=== PATIENT | female | born 1995 | race Two or more races ===

== ENCOUNTER 2021-04-28 12:45 | Emergency (ER) | payer MEDICAID, OTHER ==
[~2021-04-28] VITALS: Ht 165.1 cm; Wt 115.7 kg
[2021-04-28 13:24] VITALS: BP 171/88
[2021-04-28] MEDS ORDERED: TOBR0.3S OP (14:18)
== END 2021-04-28 14:27 | disposition home or self-care (01) ==
LOC: ER 12:45
DX: H00.014 Hordeolum externum left upper eyelid (principal); F12.10 Cannabis abuse, uncomplicated

== ENCOUNTER 2022-02-20 10:35 | Emergency (ER) | payer MEDICAID ==
[~2022-02-20] VITALS: Ht 165.1 cm; Wt 114.0 kg
[~2022-02-20 10:35] MED LIST: TOBR0.3S OP
[2022-02-20 11:10] VITALS: BP 136/93
[2022-02-20] MEDS ORDERED: ACETAMINOPHEN 500 MG TAB PO ONE (11:15)
[2022-02-20] MEDS ORDERED: METH4PAK PO (12:26)
[2022-02-20] MEDS ORDERED: AZIT1POW PO (12:26)
== END 2022-02-20 12:32 | disposition home or self-care (01) ==
LOC: ER 10:35
DX: J10.1 Influenza due to other identified influenza virus with other respiratory manifestations (principal); F17.210 Nicotine dependence, cigarettes, uncomplicated; F12.10 Cannabis abuse, uncomplicated; E11.9 Type 2 diabetes mellitus without complications; Z20.822 Contact with and (suspected) exposure to COVID-19
CPT/HCPCS: 36415; 71046; 87426; 87804

== ENCOUNTER 2023-11-11 22:07 | Emergency (ER) | payer MEDICAID ==
[~2023-11-11] VITALS: Ht 165.1 cm; Wt 115.3 kg
[~2023-11-11 22:07] MED LIST changes: +AZIT1POW PO; +METH4PAK PO
[2023-11-11] MEDS: IBUPROFEN 400 MG TAB PO ONE (22:33)
[2023-11-12 02:16] LABS: COVID19 ANTIGEN SOFIA FIA NEGATIVE (NEGATIVE); Rapid Influenza A Negative (Negative); Rapid Influenza B Negative (Negative)
[2023-11-12 02:25] LABS: Urine Bacteria None Seen /hpf (None Seen); Urine Blood 3+ /uL (Negative); Urine Clarity Clear (Clear); Urine Color Light-Yellow (Yellow); Urine Protein, UAD TRACE (Negative); Urine Specific Gravity 1.027 (1.001-1.035); Urine Urobilinogen Normal (Negative); Urine WBC 2 /hpf (0 - 5)
[2023-11-12] MEDS ORDERED: ACET500T58 PO (02:42)
[2023-11-12] MEDS: SODIUM CHLORIDE 0.9% 1,000 ML IV ONE (03:22)
[2023-11-12 04:25] VITALS: BP 132/63; PULSE 108; RESP 17; TEMP 98.7; O2SAT 100
== END 2023-11-12 04:32 | disposition home or self-care (01) ==
LOC: ER 22:07
DX: R50.9 Fever, unspecified (principal); B97.89 Other viral agents as the cause of diseases classified elsewhere; R81 Glycosuria; I10 Essential (primary) hypertension; E11.9 Type 2 diabetes mellitus without complications; E78.5 Hyperlipidemia, unspecified; F15.90 Other stimulant use, unspecified, uncomplicated; Z20.822 Contact with and (suspected) exposure to COVID-19
CPT/HCPCS: 36415; 81001; 87426; 87804; 96360; 99283; J7030